=== PATIENT | female | born 1985 | race Caucasian/White ===

== ENCOUNTER 2016-05-17 01:14 | Emergency (ER) | payer BC, MEDICAID ==
[2016-05-17 01:24] VITALS: BP 119/68
[2016-05-17] MEDS ORDERED: ACETAMINOPHEN 325 MG TABLET PO ONE (02:31)
[2016-05-17] MEDS ORDERED: ONDANSETRON 4 MG TAB.RAPDIS PO ONE (02:32)
[2016-05-17] MEDS ORDERED: ONDANSETRON ODT 4 MG TAB (6 TAB/DSPK) PO PRN (02:32)
--- NOTE | 2016-05-17 02:37 | ER Document Report ---
ED General - General Chief Complaint: Fever Stated Complaint: FEVER Notes: Patient is a 30-year-old female currently 20 weeks , no past medical history who presents with 4 hours of fever, cough and vomiting. She is here with her daughter who has the same symptoms. Multiple additional sick contacts at home. She is not taking anything to try to treat her symptoms at home. Nothing worsens her symptoms. States that she's had similar symptoms in the past and she's had influenza. She denies any abdominal pain, vaginal bleeding, vaginal discharge, or shortness of breath. She has had a persistent, nonproductive cough. She has not seen her primary care doctor regarding today' s concerns. TRAVEL OUTSIDE OF THE [place] IN LAST 30 DAYS: No - Related Data Allergies/Adverse Reactions: brompheniramine maleate [From Dimetapp] Allergy (Verified 03/31/14 16:42) dextromethorphan HBr [From Dimetapp] Allergy (Verified 03/31/14 16:42) Form.Iron, Lactose Free [From Similac] Allergy (Verified 03/31/14 16:42) infant formula with iron [From Similac] Allergy (Verified 03/31/14 16:42) infant formula,regular [From Similac] Allergy (Verified 03/31/14 16:42) phenylpropanolamine HCl [From Dimetapp] Allergy (Verified 03/31/14 16:42) pseudoephedrine HCl [From Dimetapp] Allergy (Verified 03/31/14 16:42) Past Medical History - General Information source: Patient - Social History Smoking Status: Never Smoker Chew tobacco use (# tins/day): No Frequency of alcohol use: None Drug Abuse: None Lives with: Spouse/Significant other Family History: Reviewed & Not Pertinent Patient has suicidal ideation: No Patient has homicidal ideation: No - Past Medical History Cardiac Medical History: Reports: Hx Hypertension Renal/ Medical History: Denies: Hx Peritoneal Dialysis Past Surgical History: Reports: Hx Breast Surgery - biopsy - Immunizations Immunizations up to date: Yes Hx Diphtheria, Pertussis, Tetanus Vaccination: Yes Review of Systems - Review of Systems Notes: Constitutional: Positive for fever. HENT: Negative for sore throat. Eyes: Negative for visual changes. Cardiovascular: Negative for chest pain. Respiratory: Negative for shortness of breath. Positive for cough Gastrointestinal: Negative for abdominal pain, positive for vomiting Genitourinary: Negative for dysuria. Musculoskeletal: Negative for back pain. Skin: Negative for rash. Neurological: Negative for headaches, weakness or numbness. 10 point ROS negative except as marked above and in HPI. Physical Exam - Vital signs Vitals: Temp Pulse Resp BP Pulse Ox 100.0 F 138 H 16 119/68 97 05/17/16 01:23 05/17/16 01:23 05/17/16 01:23 05/17/16 01:23 05/17/16 01:23 Interpretation: Tachycardic Notes: PHYSICAL EXAMINATION: GENERAL: Well-appearing, well-nourished and in no acute distress. HEAD: Atraumatic, normocephalic. EYES: Pupils equal round and reactive to light, extraocular movements intact, sclera anicteric, conjunctiva are normal. ENT: nares patent, oropharynx clear without exudates. Moderately dry mucous membranes. NECK: Normal range of motion, supple without lymphadenopathy LUNGS: Breath sounds clear to auscultation bilaterally and equal. No wheezes rales or rhonchi. HEART: Regular tachycardia without murmurs ABDOMEN: Gravid uterus. Soft, nontender, normoactive bowel sounds. No guarding , no rebound. No masses appreciated. EXTREMITIES: Normal range of motion, no pitting or edema. No cyanosis. NEUROLOGICAL: No focal neurological deficits. Moves all extremities spontaneously and on command. PSYCH: Normal mood, normal affect. SKIN: Warm, Dry, normal turgor, no rashes or lesions noted. Course - Re-evaluation Re-evalutation: 05/17/16 02:32 Patient presents with cough, vomiting, diarrhea, and fever at home consistent with a possible flulike illness although testing is negative. Multiple sick contacts including the patient's daughter who is also a patient here in the emergency department. Patient is overall well in appearance, in no acute distress. Lung sounds clear. Bedside ultrasound shows cardiac activity with a heart rate of 154. Able to tolerate oral intake without difficulty here in the emergency department. Patient has no focal abdominal tenderness to suggest an acute intra-abdominal pathology. No respiratory distress. I do not believe patient has an acute pneumonia to warrant a chest x- ray given clinical history and exam. At this time will discharge with return precautions and follow-up recommendations. Verbal discharge instructions given a the bedside and opportunity for questions given. Medication warnings reviewed. Patient is in agreement with this plan and has verbalized understanding of return precautions and the need for primary care follow-up in the next 24-72 hours. - Vital Signs Vital signs: Temp Pulse Resp BP Pulse Ox 100.0 F 138 H 18 119/68 97 05/17/16 01:23 05/17/16 01:23 05/17/16 02:14 05/17/16 01:23 05/17/16 01:23 Discharge - Discharge Clinical Impression: Upper respiratory infection Qualifiers: URI type: unspecified viral URI Qualified Code(s): J06.9 - Acute upper respiratory infection, unspecified; B97.89 - Other viral agents as the cause of diseases classified elsewhere Fever Qualifiers: Fever type: unspecified Qualified Code(s): R50.9 - Fever, unspecified Condition: Good Disposition: HOME, SELF-CARE Additional Instructions: Your symptoms are most likely due to a viral infection it should resolve over the next 7-14 days. You may also use tylenol as needed for aches and thorat discomfort. Please be sure to drink plenty of fluids and get rest. Return to the emergency department he began having difficulty breathing, chest pain, persistent vomiting, or any other symptoms that are concerning to you.
== END 2016-05-17 04:16 | disposition home or self-care (01) ==
LOC: ER 01:14
DX: O99.512 Diseases of the respiratory system complicating pregnancy, second trimester (principal); J06.9 Acute upper respiratory infection, unspecified; B97.89 Other viral agents as the cause of diseases classified elsewhere; O26.892 Other specified pregnancy related conditions, second trimester; R50.9 Fever, unspecified; R05 Cough; R00.0 Tachycardia, unspecified; R19.7 Diarrhea, unspecified; O21.9 Vomiting of pregnancy, unspecified; O16.2 Unspecified maternal hypertension, second trimester; Z3A.20 20 weeks gestation of pregnancy; Z88.8 Allergy status to other drugs, medicaments and biological substances; Z91.048 Other nonmedicinal substance allergy status
CPT/HCPCS: 99283; 87804; S0119